=== PATIENT | female | born 1975 | race Caucasian/White ===

== ENCOUNTER → 2017-05-01 | Outpatient (CLI) | payer BC ==
[2015-12-15 00:54] VITALS: BP 136/76
[~2017-05-01] MED LIST: ALBUTEROL2.5 MG/3 M IH; ATROVENT I0.2 MG/1 M INH; COD PO; HCTZ/TRIAMTEREN1 CA2 PO; LEVOFLOXACIN750 MG PO; PREDNISONE20 M1 PO; PRILOSEC 20MG20 MG PO; PRO PO; TESSALON PERLE100 M1 PO; [UNRECOGNIZED DRUG - OTHER] PO
== END ==
LOC: LAB 06:56
DX: Z00.00 Encounter for general adult medical examination without abnormal findings (principal)

== ENCOUNTER 2020-03-17 21:01 | Emergency (ER) | payer BC ==
[~2020-03-17] VITALS: Ht 154.9 cm; Wt 109.1 kg
[2020-03-17] MEDS ORDERED: CLARITIN 1010 MG/TAB PO (21:19)
[2020-03-17] MEDS ORDERED: LEXAPRO20 M1 PO (21:19)
[2020-03-17] MEDS ORDERED: VITAMIN D-40010 MCG PO (21:19)
[2020-03-17] MEDS ORDERED: VITAMIN B122500 MC1 PO (21:19)
[2020-03-17] MEDS ORDERED: ESTARYLLA 35 MC1 TAB PO (21:19)
[2020-03-17] MEDS ORDERED: IRON 100 PLUS 21 TAB PO (21:20)
[2020-03-17 21:50] LABS: EOS # 0.2 (0.04-0.40); HEMATOCRIT 38.5 % (37.0-47.0); HEMOGLOBIN 12.7 g/dL (12.5-16.0); LYMPH# 2.5 (1.50-4.00); MEAN CELL VOLUME 93 fl (78-100); MEAN CORPUSCULAR HEMOGLOBIN 31 pg (27-31); MEAN CORPUSCULAR HGB CONC 33 g/dL (33-37); MEAN PLATELET VOLUME 9.9 fl (7.4-10.4); MONO # 0.9 (0.20-0.80); NEU # 7.8 (1.40-6.50); PLATELET COUNT 310 K/mm3 (130-400); RED BLOOD COUNT 4.15 M/mm3 (4.10-5.30); RED CELL DISTRIBUTION WIDTH 12.6 % (11.5-14.5); WHITE BLOOD COUNT 11.4 K/mm3 (4.8-10.8)
[2020-03-17 22:50] LABS: ERYTHROCYTE SEDIMENTATION RATE 19 mm/hr (0-20)
[2020-03-17] MEDS ORDERED: PREDNISONE20 M1 PO (23:15)
[2020-03-17 23:22] VITALS: BP 127/79
== END 2020-03-17 23:22 | disposition home or self-care (01) ==
LOC: ED 21:01
PROVIDERS: Family Medicine
DX: L25.9 Unspecified contact dermatitis, unspecified cause (principal); Z87.442 Personal history of urinary calculi; Z90.89 Acquired absence of other organs; Z79.52 Long term (current) use of systemic steroids